=== PATIENT | male | born 1990 | race African-American/Black ===

== ENCOUNTER 2020-11-22 09:50 | Emergency (ER) | payer SELFPAY ==
--- NOTE | 2020-11-22 09:52 | ED.SKABFB ---
HPI - Skin/Abscess/Foreign Bdy General Chief complaint: Skin/Abscess/Foreign Body Stated complaint: rash Time Seen by Provider: 11/22/20 09:52 Source: patient and RN notes reviewed History of Present Illness HPI narrative: Patient is a 29-year-old male who presents the urgent care with complaints of hives to the abdomen, back, arms and hands. Patient states that it happened very quickly at work and states that he also felt like his face was swelling. Patient states that is considerably gone down since he got to our facility and he has not taken anything for his symptoms. States that the hives started after drinking a banana smoothie 3 days ago, knowing that he is allergic to bananas. Patient states that it resolved and then showed up again 2 days later. Patient states that yesterday he did take Benadryl, Aleve and some allergy medication for the symptoms at that time. States that when the hives returned today while he was at work, it seemed to be progressing quickly. Patient states he is also been under a lot of stress and did have some anxiety. Patient denies of any history of hives induced from stress or anxiety. Currently denies of any shortness of breath, chest pain, throat closing, difficulty swallowing. No other acute complaints. No acute distress noted. Patient aware of the plan of care. Some parts of this dictation were generated by voice recognition software and may contain typographical and/or grammatical inaccuracies. Related Data Allergies Allergy/AdvReac Type Severity Reaction Status Date / Time banana Allergy Rash Verified 11/22/20 10:12 shellfish derived Allergy Rash Verified 11/22/20 10:13 Review of Systems Review of Systems: Narrative: CONSTITUTIONAL: Denies fever, chills, or sweats. EYES: Denies visual changes, redness, or discharge. ENT: Denies rhinorrhea, congestion, sore throat, or otalgia. CARDIOVASCULAR: Denies chest pain, palpitations, or edema. RESPIRATORY: Denies cough or dyspnea. GASTROINTESTINAL: Denies abdominal pain, nausea, vomiting, or diarrhea. GENITOURINARY: Denies dysuria or hematuria. SKIN: Reports of itchiness and hives to the abdomen, back, bilateral arms and hands MUSCULOSKELETAL: Denies back pain, joint pain, or myalgia. NEUROLOGIC: Denies headache, numbness, or weakness. All other systems reviewed are negative, except as documented in HPI. PMFSH Comments At the time of my signature, I reviewed and agree with the nursing past medical, surgical, social, and family history. There is no relevant family history pertinent to the patient complaint. Exam Narrative: Exam Narrative: GENERAL: This is a well-nourished, well-developed patient, in no apparent distress. HEAD: normocephalic, atraumatic. EYES: PERRL. Sclera clear/white. Vision is grossly intact. Mild bilateral upper eyelid edema EARS: External ears normal NOSE: External nose normal with no obvious nasal discharge, nares without redness, no rhinorrhea. THROAT: Mucous membranes moist, clear posterior oropharynx NECK: Neck supple, non-tender without lymphadenopathy CARDIOVASCULAR: Regular rate and rhythm without murmurs, gallops, or rubs. RESPIRATORY: Clear to auscultation. Breath sounds equal bilaterally. No wheezes, rales, or rhonchi. SKIN: Used raised, erythemic, pruritic urticaria noted to the torso, upper back, and scattered forearms NEURO: awake, alert, and oriented to person, place and time. There were no obvious focal neurologic abnormalities. EXTREMITIES: No clubbing, cyanosis, or edema. Course Vital Signs Vital signs: Vital Signs Temperature 97.5 F L 11/22/20 10:02 Pulse Rate 112 H 11/22/20 10:02 Respiratory Rate 11/22/20 10:02 Blood Pressure 164/138 H 11/22/20 10:02 Pulse Oximetry 100 11/22/20 10:02 Temperature 97.5 F L 11/22/20 10:02 Pulse Rate 112 H 11/22/20 10:02 Respiratory Rate 20 11/22/20 10:02 Blood Pressure 164/138 H 11/22/20 10:02 Pulse Oximetry 100 11/22/20 10:02 Reviewed?[email or web address]
[2020-11-22 10:02] VITALS: BP 164/138; PULSE 112; RESP 20; TEMP 36.4; O2SAT 100
[2020-11-22] MEDS: methylPREDNISolone ACETATE 80 MG/ML VIAL IM (10:17)
== END 2020-11-22 10:34 | disposition home or self-care (01) ==
PROVIDERS: Emergency Provider Nurse Practitioner Family
DX: L50.9 Urticaria, unspecified (principal)
CPT/HCPCS: 96372; 99213; G0463; J1040